=== PATIENT | female | born 1960 | race Caucasian/White ===

== ENCOUNTER 2018-08-07 10:36 | Emergency (ER) | payer MEDICAID ==
[2018-08-07 13:54] VITALS: BP 128/70
== END 2018-08-07 13:54 | disposition home or self-care (01) ==
LOC: ED 10:36
DX: M25.511 Pain in right shoulder (principal); J40 Bronchitis, not specified as acute or chronic; R19.7 Diarrhea, unspecified
CPT/HCPCS: J1885

== ENCOUNTER 2019-03-06 22:51 | Emergency (ER) | payer BC ==
[~2019-03-06] VITALS: Ht 175.3 cm; Wt 104.3 kg
[2019-03-06 23:00] VITALS: Ht 175.3 cm; Wt 104.3 kg
[2019-03-07 02:55] VITALS: BP 127/73
== END 2019-03-07 02:55 | disposition home or self-care (01) ==
LOC: ED 22:51
DX: S13.9XXA Sprain of joints and ligaments of unspecified parts of neck, initial encounter (principal); M25.511 Pain in right shoulder; M06.9 Rheumatoid arthritis, unspecified; Z98.890 Other specified postprocedural states; V49.19XA Passenger injured in collision with other motor vehicles in nontraffic accident, initial encounter; Y93.I9 Activity, other involving external motion; Y92.413 State road as the place of occurrence of the external cause; Y99.8 Other external cause status
CPT/HCPCS: J1885

== ENCOUNTER 2019-11-06 11:42 | Emergency (ER) | payer BC ==
[~2019-11-06] VITALS: Ht 175.3 cm; Wt 110.2 kg
[2019-11-06 11:49] VITALS: BP 165/79; Ht 175.3 cm; Wt 110.2 kg
== END 2019-11-06 12:28 | disposition home or self-care (01) ==
LOC: ED 11:42
DX: K08.89 Other specified disorders of teeth and supporting structures (principal); G89.29 Other chronic pain
CPT/HCPCS: J1885

== ENCOUNTER 2019-11-30 14:26 | Inpatient (IN) | payer BC ==
[~2019-11-30] VITALS: Ht 175.3 cm; Wt 111.6 kg
[2019-11-30 14:47] VITALS: Ht 175.3 cm; Wt 111.6 kg
[2019-11-30 15:46] LABS: PLATELET COUNT 366 x10^3mcL (130-400); RED CELL DISTRIBUTION WIDTH 13.3 % (11.5-14.5)
[2019-11-30 16:07] LABS: UA SPECIFIC GRAVITY 1.025 (1.005-1.035); microscopic required? YES; urine erythrocyte NEGATIVE (NEGATIVE)
[2019-11-30 16:09] LABS: CALCIUM 9.2 mg/dL (8.5-10.1); CARBON DIOXIDE 31.1 mmol/L (21-32); CHLORIDE SERUM 104 mmol/L (98-107); CREATININE SERUM 0.8 mg/dL (0.6-1.0); GFR1 > 60 mL/min; GLUCOSE SERUM 100 mg/dL (74-106); POTASSIUM SERUM 4.3 mmol/L (3.5-5.1); SODIUM SERUM 141 mmol/L (136-145)
[2019-11-30 16:21] LABS: ALBUMIN 3.7 g/dL (3.4-5.0); ALKALINE PHOSPHATASE 98 U/L (46-116); ALT/SGPT 19 U/L (14-59); AST/SGOT 13 U/L (15-37); BILIRUBIN TOTAL 0.36 mg/dL (0.20-1.00); LIPASE 95 IU/L (73-393); TOTAL PROTEIN, SERUM 7.7 g/dL (6.4-8.2)
[2019-11-30] MEDS ORDERED: SIMVASTATIN (16:56)
[2019-11-30 20:39] VITALS: BP 131/76
[2019-12-01 06:21] VITALS: BP 126/63
[2019-12-01 07:09] LABS: CALCIUM 8.6 mg/dL (8.5-10.1); CARBON DIOXIDE 30.2 mmol/L (21-32); CHLORIDE SERUM 106 mmol/L (98-107); CREATININE SERUM 0.8 mg/dL (0.6-1.0); GFR1 > 60 mL/min; GLUCOSE SERUM 108 mg/dL (74-106); MAGNESIUM 2.5 mg/dL (1.8-2.4); PHOSPHOROUS 3.6 mg/dL (2.5-4.9); POTASSIUM SERUM 4.2 mmol/L (3.5-5.1); SODIUM SERUM 142 mmol/L (136-145)
[2019-12-01 08:29] VITALS: BP 154/94
[2019-12-01 08:33] LABS: BASOPHIL % 0.5 % (0-2); PLATELET COUNT 314 x10^3mcL (130-400); RED CELL DISTRIBUTION WIDTH 13.4 % (11.5-14.5)
[2019-12-01 09:48] LABS: AMPHETAMINE QUAL UR NONE DETECTED (See below)
[2019-12-01 12:02] VITALS: BP 129/81
[2019-12-01 16:36] VITALS: BP 126/78
[2019-12-01 19:35] VITALS: BP 117/72
[2019-12-02 05:21] VITALS: BP 135/83
[2019-12-02 07:07] LABS: CALCIUM 8.9 mg/dL (8.5-10.1); CARBON DIOXIDE 28.2 mmol/L (21-32); CHLORIDE SERUM 106 mmol/L (98-107); CREATININE SERUM 0.7 mg/dL (0.6-1.0); GFR1 > 60 mL/min; GLUCOSE SERUM 98 mg/dL (74-106); MAGNESIUM 2.5 mg/dL (1.8-2.4); PHOSPHOROUS 3.5 mg/dL (2.5-4.9); SODIUM SERUM 142 mmol/L (136-145)
[2019-12-02 07:10] LABS: BASOPHIL % 0.6 % (0-2); PLATELET COUNT 354 x10^3mcL (130-400); RED CELL DISTRIBUTION WIDTH 13.6 % (11.5-14.5)
[2019-12-02 08:30] VITALS: BP 122/67
[2019-12-02 12:06] VITALS: BP 149/92
[2019-12-02 16:14] VITALS: BP 155/89
[2019-12-02 21:48] VITALS: BP 135/91
[2019-12-03 05:43] VITALS: BP 133/80
[2019-12-03 06:51] LABS: BASOPHIL % 0.5 % (0-2); PLATELET COUNT 338 x10^3mcL (130-400); RED CELL DISTRIBUTION WIDTH 13.4 % (11.5-14.5)
[2019-12-03 07:19] LABS: CALCIUM 8.5 mg/dL (8.5-10.1); CARBON DIOXIDE 24.5 mmol/L (21-32); CHLORIDE SERUM 109 mmol/L (98-107); CREATININE SERUM 0.7 mg/dL (0.6-1.0); GFR1 > 60 mL/min; GLUCOSE SERUM 80 mg/dL (74-106); POTASSIUM SERUM 3.8 mmol/L (3.5-5.1); SODIUM SERUM 144 mmol/L (136-145)
[2019-12-03 07:20] VITALS: BP 129/76
[2019-12-03 11:48] VITALS: BP 110/57
[2019-12-03 15:34] VITALS: BP 110/57
[2019-12-03 16:21] VITALS: BP 135/74
== END 2019-12-03 18:39 | disposition home or self-care (01) | DRG 244 ==
LOC: ED 14:26 → MU 19:25
PROVIDERS: Emergency Medicine; Internal Medicine Gastroenterology; ADMIT Internal Medicine
PROC: 0DB68ZX Excision of Stomach, Via Natural or Artificial Opening Endoscopic, Diagnostic (ICD-10-PCS; principal; 2019-12-03 08:00)
PROC: 0DJD8ZZ Inspection of Lower Intestinal Tract, Via Natural or Artificial Opening Endoscopic (ICD-10-PCS; 2019-12-03 08:00)
DX: K57.32 Diverticulitis of large intestine without perforation or abscess without bleeding (principal); E66.9 Obesity, unspecified; F17.210 Nicotine dependence, cigarettes, uncomplicated; G89.29 Other chronic pain; E78.00 Pure hypercholesterolemia, unspecified; K64.8 Other hemorrhoids; K29.70 Gastritis, unspecified, without bleeding; E78.5 Hyperlipidemia, unspecified; Z68.36 Body mass index [BMI] 36.0-36.9, adult; Z90.710 Acquired absence of both cervix and uterus; Z82.49 Family history of ischemic heart disease and other diseases of the circulatory system; Z83.3 Family history of diabetes mellitus
CPT/HCPCS: 43235; 45378; 99406; G0378; J1200; J1610; J1885; J2250; J2270; J2310; J2543; J2765; J3010; J3490; J7030; Q0092